=== PATIENT | female | born 1965 | race Caucasian/White ===

== ENCOUNTER → 2023-11-04 07:22 | Outpatient (REF) | payer BC, SELFPAY ==
[2023-11-04 08:51] LABS: % Basophils 0.8 % (0-2); % Eosinophils 2.1 % (0-6); % Immature Granulocytes 0.2 % (0-0.5); % Lymphocytes 31.3 % (20.5-51.1); % Neutrophils 58.6 % (42.2-75.2); Absolute Eosinophils 0.1 10^3/uL (0-0.7); Absolute Lymphocytes 1.5 10^3/uL (1.2-3.4); Absolute Monocytes 0.3 10^3/uL (0.1-0.6); Absolute Neutrophils 2.8 10^3/uL (1.4-6.5); Hematocrit 36.6 % (37.0-47.0); Hemoglobin 12.1 g/dL (12.0-16.0); Mean Corp Hgb Conc. 33.1 g/dL (33.0-37.0); Mean Corpuscular Hgb 29.6 pg (27.0-31.0); Mean Corpuscular Volume 89.5 fL (81.0-99.0); Mean Platelet Volume 11.3 fL (7.4-10.4); Nucleated Red Blood Cells % 0 %; Platelet Count 280 10^3/uL (130-400); Red Blood Cell Count 4.09 10^6/uL (4.20-5.40); Red Cell Dist. Width 12.4 % (11.5-14.5); White Blood Cell Count 4.8 10^3/uL (4.8-10.8)
[2023-11-04 09:00] LABS: ALT (SGPT) 11 U/L (0-35); AST (SGOT) 18 U/L (14-36); Alkaline Phosphatase 61 U/L (38-126); Blood Urea Nitrogen 16 mg/dl (7-17); Calcium 9.2 mg/dl (8.4-10.2); Carbon Dioxide 28 mmol/L (22-30); Chloride 104 mmol/L (98-107); Glucose 100 mg/dl (70-99); Potassium 4.1 mmol/L (3.5-5.1); Sodium 139 mmol/L (135-145); Total Bilirubin 0.5 mg/dl (0.2-1.3); Total Protein 6.4 g/dl (6.3-8.2); eGFR > 60.00
[2023-11-04 09:29] LABS: TSH Reflex To Free T4 0.76 uIU/ml (0.47-4.68)
[2023-11-04 10:05] LABS: Folate 11.9 ng/ml (2.76-20); Vitamin B12 229 pg/ml (239-931)
[2023-11-08 01:30] LABS: Methylmalonic Acid 0.13 umol/L (0.00-0.40)
== END ==
LOC: HWLAB 07:22
PROVIDERS: ATTENDING PHYSICIAN Family Medicine
DX: R29.898 Other symptoms and signs involving the musculoskeletal system (principal); Z71.89 Other specified counseling; E66.9 Obesity, unspecified; R19.5 Other fecal abnormalities; R26.89 Other abnormalities of gait and mobility; W01.0XXA Fall on same level from slipping, tripping and stumbling without subsequent striking against object, initial encounter; Z68.30 Body mass index [BMI] 30.0-30.9, adult
CPT/HCPCS: 36415; 80053; 82607; 82746; 83921; 84443; 85025

== ENCOUNTER → 2023-11-16 14:13 | Outpatient (REF) | payer BC, SELFPAY | LOC: PAVMRI 14:13 | PROVIDERS: ATTENDING PHYSICIAN Family Medicine | DX: R42 Dizziness and giddiness (principal); R26.89 Other abnormalities of gait and mobility; R29.898 Other symptoms and signs involving the musculoskeletal system | CPT/HCPCS: 70551; 72148 ==

== ENCOUNTER → 2023-12-02 07:27 | Outpatient (REF) | payer BC, SELFPAY | LOC: HWRAD 07:27 | PROVIDERS: ATTENDING PHYSICIAN Family Medicine | DX: N28.1 Cyst of kidney, acquired (principal) | CPT/HCPCS: 76775 ==

== ENCOUNTER → 2024-08-02 13:43 | Outpatient (REF) | payer BC, SELFPAY | LOC: HWWDC 13:43 | PROVIDERS: ATTENDING PHYSICIAN Family Medicine | DX: Z12.31 Encounter for screening mammogram for malignant neoplasm of breast (principal) | CPT/HCPCS: 77063; 77067 ==

== ENCOUNTER → 2025-04-15 13:41 | Outpatient (REF) | payer BC, SELFPAY | LOC: HWRAD 13:41 | PROVIDERS: ATTENDING PHYSICIAN Family Medicine; REFERRING PHYSICIAN Internal Medicine | DX: R19.7 Diarrhea, unspecified (principal) | CPT/HCPCS: 74176 ==

== ENCOUNTER 2025-05-21 06:26 | Day surgery (SDC) | payer BC, SELFPAY | END 2025-05-21 09:49 | disposition home or self-care (01) | LOC: GI 06:26 | PROVIDERS: ATTENDING PHYSICIAN Internal Medicine | DX: R63.4 Abnormal weight loss (principal); R19.4 Change in bowel habit; A63.0 Anogenital (venereal) warts; K62.89 Other specified diseases of anus and rectum; R13.10 Dysphagia, unspecified; E53.8 Deficiency of other specified B group vitamins; K44.9 Diaphragmatic hernia without obstruction or gangrene; K22.4 Dyskinesia of esophagus; D12.3 Benign neoplasm of transverse colon; K63.5 Polyp of colon | CPT/HCPCS: 45380; 43239; 88305; 88342 ==

== ENCOUNTER 2025-07-10 06:25 | Day surgery (SDC) | payer BC, SELFPAY ==
[2025-07-10 09:34] VITALS: BMI 25.7
[2025-07-10 09:35] VITALS: BMI 25.7
[2025-07-10] MEDS: CELEBREX 200 MG PO (09:38)
[2025-07-10] MEDS: TYLENOL 1000 MG PO (09:38)
[2025-07-10 09:40] VITALS: BP 132/86
[2025-07-10] MEDS: NORMOSOL-R/PLASMALYTE-A 1000 IV (09:48)
[2025-07-10 14:51] VITALS: BP 112/63
--- NOTE | 2025-07-10 14:54 | W.IMMPOSTOP ---
Surgical Immed Post Op Note
-
Primary Surgeon: Glenn Murry MD
Assisting Surgeon: None
Pre-op Diagnosis: Anal low-grade squamous intraepithelial lesion
Post-op Diagnosis: Anal low-grade squamous intraepithelial lesion
Procedure Performed: High-resolution anoscopy with biopsy and fulguration, bilateral pudendal nerve block
Anesthesia Type: Sedation with local
Specimen / Cultures:
1. Posterior perianal biopsy
2. Right anterior perianal biopsy
3. Right posterior perianal biopsy
4. Left lateral proximal anal canal biopsy
5. Left lateral mid anal canal biopsy
6. Posterior left mid anal canal biopsy
7. Posterior right mid anal canal biopsy
8. Right posterior proximal anal canal biopsy
9. Anterior left proximal anal canal biopsy
Estimated Blood Loss: 10 mL
Complications: None
Operative Findings: Per op note
--- NOTE | 2025-07-10 14:58 | OR.RPT ---
Operative Report
Operative Report
DATE OF OPERATION: 07/10/2025
SURGEON: Glenn Murry MD
PREOPERATIVE DIAGNOSIS: Anal low-grade squamous intraepithelial lesion
POSTOPERATIVE DIAGNOSIS: Anal low-grade squamous intraepithelial lesion
OPERATION: Exam under anesthesia, high-resolution anoscopy, multiple anal biopsy, fulgration of anal lesion, bilateral pudendal nerve block
ASSISTANTS:
1. None
ANESTHESIA: Sedation with local
ESTIMATED BLOOD LOSS: 10 mL
FINDINGS:
1. Perianal biopsies x 3
2. 6 anal canal biopsies with fulguration of 5 of those lesions
SPECIMENS:
1. Posterior perianal biopsy
2. Right anterior perianal biopsy
3. Right posterior perianal biopsy
4. Left lateral proximal anal canal biopsy
5. Left lateral mid anal canal biopsy
6. Posterior left mid anal canal biopsy
7. Posterior right mid anal canal biopsy
8. Right posterior proximal anal canal biopsy
9. Anterior left proximal anal canal biopsy
DRAINS: None
COMPLICATIONS: None
INDICATIONS: The patient is a 60-year-old female who was found to have low-grade squamous intraepithelial lesion after a biopsy that was done on colonoscopy. Therefore, the patient was recommended to have high-resolution anoscopy with possible
biopsy and fulguration. After discussion with the patient, as there was a visible lesion seen on colonoscopy. The operation was discussed with the patient in detail, including the risks, benefits and alternatives. Risks described included, but not
limited to bleeding, infection, urinary retention, damage to nearby structures such as the anal sphincter, anal stenosis, missed lesions, progression to anal cancer despite monitoring and treatment and anesthetic risks. The patient understood and
agreed to proceed. The consent was signed and placed in the chart.
PROCEDURE IN DETAIL: The patient was taken to the operating room. The patient was placed on the operating table in prone position. Sequential compression devices were placed bilaterally. Sedation was commenced without complication. Two seat belts
were secured around the legs and upper back. The buttocks were taped apart. The perineum was shaved, prepped and draped in the usual fashion. A time-out was performed verifying the correct patient, procedure, operative site, positioning, and
special equipment.
Local anesthesia used was a mixture of 60 mL of 0.25% Marcaine with epinephrine and 0.6 mg of dexamethasone. 40 mL was injected perianally at the beginning of the case. The anorectal exam was performed assessing all four quadrants of the anal canal
using Hill-Huggins retractors in progressively increasing size. No concerning visible lesions were seen within the anal canal. There were 2 or 3 innocent�appearing anal papilla, which is likely what I visualized during my office exam. There were
no masses. There was no proctitis.
I placed a ray-ly soaked in 5% acetic acid within the anal canal and folded an external portion of it to cover the yulia-anal region. This was left in place for 3 minutes and then removed. The anal canal was again visualized with Hill-Huggins
retractors. Each quadrant was examined using the laparoscope on highest zoom, allowing for high-resolution. Lugol's 2% solution was then swabbed on to each quadrant under direct visualization using high-resolution.
In the perianal area, there was an area that appeared acetowhite in the posterior position, near the midline and within a centimeter of the anal verge. There were striations noted. I performed a biopsy of this using the Tischler forceps.
Hemostasis was achieved with electrocautery. There was an additional lesion noted in the anterior position in the perianal skin, to the right of midline. This was small with some slight striations noted. I performed a biopsy of this using the
Tischler forceps. Hemostasis was achieved with electrocautery. Lastly, in the right posterior position of the perianal skin, there was acetowhite noted along a crease with the appearance of striations. This was biopsied with the Tischler forceps.
Hemostasis was achieved with electrocautery.
In the left lateral quadrant, there were 2 areas that were noted to be acetowhite and Lugol's negative. These were flat and small areas. One was close to the squamocolumnar junction. The second was along the mid-anal canal. I performed a biopsy
of the first, labeled left lateral proximal anal canal, using the Tischler forceps. Hemostasis was achieved with electrocautery. The second was also biopsied. As the lesion was so small, I fulgurated the remainder of the lesion for definitive
treatment.
In the posterior quadrant, there were 2 areas that appeared acetowhite and Lugol's negative. These also were flat and small lesions. One was in the left mid anal canal and was biopsied and fulgurated. The other was in the right mid anal canal,
which was biopsied and fulgurated. Hemostasis was assured with electrocautery.
In the right lateral quadrant, there was 1 small patch that appeared acetowhite and Lugol's negative near the squamocolumnar junction. This patch was biopsied with the Tischler forceps and fulgurated. Hemostasis was assured.
In the anterior quadrant, there was a slightly raised, somewhat nodular small patch that was acetowhite and partially Lugol's negative. This was near the squamocolumnar junction and may represent the spot that was biopsied during colonoscopy. I
performed a biopsy of this with the Tischler forceps and fulgurated the patch. Hemostasis was assured.
The remaining 20 mL of local were injected. 5 mL was injected bilaterally for a pudendal nerve block. 10 mL was injected around the surgical site and perianally. Hemostasis was reassessed once more using the philippe Baker-Huggins and was confirmed.
At this point, the procedure was complete. All needle, sponge and instrument counts were correct. The patient tolerated the procedure well and was transferred to the recovery room in stable condition with gauze dressing in place secured with silk
tape.
DICTATED BY: Glenn Murry MD
[2025-07-10 15:00] VITALS: BP 121/64
[2025-07-10 15:15] VITALS: BP 111/87
[2025-07-10 15:36] VITALS: BP 132/79
[2025-07-10 15:48] VITALS: BP 135/93
== END 2025-07-10 15:56 | disposition home or self-care (01) ==
LOC: SDS 06:25
PROVIDERS: ATTENDING PHYSICIAN Surgery
DX: R87.612 Low grade squamous intraepithelial lesion on cytologic smear of cervix (LGSIL) (principal); K62.82 Dysplasia of anus
CPT/HCPCS: 46230; 46607; 88305; 88341; 88342

== ENCOUNTER → 2025-08-16 10:50 | Outpatient (REF) | payer BC, SELFPAY | LOC: PAVMRI 10:50 | PROVIDERS: ATTENDING PHYSICIAN Internal Medicine; PRIMARYCARE PHYSICIAN Family Medicine | DX: R19.4 Change in bowel habit (principal); R63.4 Abnormal weight loss; R79.89 Other specified abnormal findings of blood chemistry; R15.2 Fecal urgency | CPT/HCPCS: 72197; 74183; A9575 ==